=== PATIENT | female | born 1980 | race Caucasian/White ===

== ENCOUNTER → 2018-05-26 | Outpatient (CLI) | payer OTHER ==
[2018-05-29 21:08] LABS: CHLAMYDIA TRACHOMATIS, NAA Negative (Negative); NEISSERIA GONORRHOEAE, NAA Positive (Negative)
== END | disposition home or self-care (01) ==
LOC: LAB EV 15:35 → LAB SHORT 15:35
PROVIDERS: Physician Assistant Medical
DX: Z72.51 High risk heterosexual behavior (principal)
CPT/HCPCS: 87491; 87591

== ENCOUNTER → 2019-01-11 | Outpatient (CLI) | payer OTHER | END | disposition home or self-care (01) | LOC: LAB EV 10:47 → LAB SHORT 10:47 | DX: J02.9 Acute pharyngitis, unspecified (principal) | CPT/HCPCS: 87070; 87077; 87185 ==

== ENCOUNTER → 2019-02-20 | Outpatient (CLI) | payer OTHER ==
[2019-02-24 08:14] LABS: CHLAMYDIA TRACHOMATIS, NAA Negative (Negative); NEISSERIA GONORRHOEAE, NAA Negative (Negative)
== END | disposition home or self-care (01) ==
LOC: LAB SHORT 15:38 → LAB 15:38
PROVIDERS: Obstetrics & Gynecology
DX: Z11.3 Encounter for screening for infections with a predominantly sexual mode of transmission (principal)
CPT/HCPCS: 87491; 87591

== ENCOUNTER → 2022-04-19 | Outpatient (CLI) | payer OTHER ==
[2022-04-19 15:07] LABS: Candida species (DNA Probe) Negative (NEGATIVE); G. vaginalis (DNA Probe) Positive (NEGATIVE); T. vaginalis (DNA Probe) Negative (NEGATIVE)
[2022-04-21 03:09] LABS: CHLAMYDIA TRACHOMATIS, NAA Negative (Negative)
== END | disposition home or self-care (01) ==
LOC: LAB SHORT 09:14
PROVIDERS: Physician Assistant
DX: Z20.9 Contact with and (suspected) exposure to unspecified communicable disease (principal)
CPT/HCPCS: 87086; 87480; 87491; 87510; 87591; 87660

== ENCOUNTER → 2023-10-15 | Outpatient (CLI) | payer OTHER ==
[2023-10-17 02:08] LABS: CHLAMYDIA TRACHOMATIS, NAA Negative (Negative)
== END ==
LOC: LAB SHORT 17:24 → LAB 17:24
PROVIDERS: Family Medicine
DX: Z11.3 Encounter for screening for infections with a predominantly sexual mode of transmission (principal)
CPT/HCPCS: 87491; 87591

== ENCOUNTER → 2025-01-18 | Outpatient (CLI) | payer OTHER | LOC: LAB 17:01 → LAB SHORT 17:01 | DX: N39.0 Urinary tract infection, site not specified (principal) | CPT/HCPCS: 87086 ==